=== PATIENT | female | born 1995 | race American Indian/Alaskan Native ===

== ENCOUNTER 2017-12-02 12:49 | Emergency (ER) | payer SELFPAY ==
[2017-12-02 13:07] VITALS: BP 122/64
[2017-12-02 13:50] LABS: Basophils % (Auto) 0.3 % (0.0-1.8); Eosinophils # (Auto) 0.1 K/mm3 (0.0-0.4); Hematocrit 40.2 % (30.3-42.9); Hemoglobin 13.6 gm/dl (10.1-14.3); Lymphocytes % (Auto) 24.7 % (13.4-35.0); Mean Corpuscular HGB Conc 34 % (30-34); Mean Corpuscular Hemoglobin 31 pg (28-32); Mean Corpuscular Volume 92 fl (79-97); Monocytes # (Auto) 0.6 K/mm3 (0.0-0.8); Monocytes % (Auto) 6.7 % (0.0-7.3); Platelet Count 227 K/mm3 (140-440); Red Blood Count 4.36 M/mm3 (3.65-5.03); Red Cell Distribution Width 12.4 % (13.2-15.2)
[2017-12-02 14:07] LABS: Alanine Aminotransferase 12 units/L (7-56); BUN/Creatinine Ratio 11; Blood Urea Nitrogen 8 mg/dL (7-17); Calcium 8.9 mg/dL (8.4-10.2); Hemolysis Index 14
[2017-12-02 18:09] LABS: Bacteria,Urine 1+ /HPF (Negative); Bilirubin,Urine NEG (Negative); Blood,Urine NEG (Negative); Color,Urine Yellow (Yellow); Mucus,Urine FEW /HPF; Nitrite,Urine NEG (Negative); Protein,Urine <15 mg/dL mg/dL (Negative); Urobilinogen,Urine < 2.0 mg/dL (<2.0)
== END 2017-12-02 21:25 | disposition left against medical advice (07) ==
LOC: ED 12:49
DX: R10.2 Pelvic and perineal pain (principal); Z53.21 Procedure and treatment not carried out due to patient leaving prior to being seen by health care provider
CPT/HCPCS: 36415; 80053; 81001; 85025

== ENCOUNTER 2018-05-03 19:16 | Emergency (ER) | payer SELFPAY ==
[2018-05-03] MEDS ORDERED: TYLENOL ONE (22:16)
[2018-05-04 01:54] LABS: Basophils % (Auto) 0.3 % (0.0-1.8); Eosinophils % (Auto) 0.3 % (0.0-4.3); Hematocrit 41.3 % (30.3-42.9); Lymphocytes % (Auto) 14.1 % (13.4-35.0); Mean Corpuscular HGB Conc 34 % (30-34); Mean Corpuscular Hemoglobin 31 pg (28-32); Mean Corpuscular Volume 91 fl (79-97); Monocytes # (Auto) 0.6 K/mm3 (0.0-0.8); Monocytes % (Auto) 4.1 % (0.0-7.3); Platelet Count 255 K/mm3 (140-440); Red Blood Count 4.55 M/mm3 (3.65-5.03); Red Cell Distribution Width 12.2 % (13.2-15.2)
[2018-05-04 03:30] LABS: Bilirubin,Urine NEG (Negative); Blood,Urine NEG (Negative); Color,Urine Yellow (Yellow); Mucus,Urine 1+ /HPF; Protein,Urine <15 mg/dL mg/dL (Negative)
[2018-05-04] MEDS ORDERED: TORADOL IV ONE (03:36)
[2018-05-04] MEDS ORDERED: SUBLIMAZE IV ONE (03:36)
[2018-05-04] MEDS ORDERED: NACL 0.9% 1000 ML 1,000 ML IV ONE (03:36)
--- NOTE | 2018-05-04 03:37 | Emergency Department Report ---
ED Abdominal Pain HPI - General Chief Complaint: Abdominal Pain Stated Complaint: ABD PAIN; VAG BLEEDING Time Seen by Provider: 05/04/18 03:30 Source: patient, RN notes reviewed, old records reviewed Mode of arrival: Ambulatory Limitations: No Limitations - History of Present Illness Initial Comments: This is a 23-year-old female, unknown to this provider previously, history of gonorrhea, patient has seen Pasquale Rosario of gynecology in the past. Presents to the ER with suprapubic and lower abdominal pain, bleeding and cramping. Positive discharge which is yellow, no urinary symptoms. Has one partner who she is sexually active with, reports condom use. MD Complaint: abdominal pain -: Gradual Location: LLQ, RLQ, suprapubic Severity: moderate Severity scale (0 -10): 0 Quality: cramping, aching Consistency: constant Improves With: medication, rest Worsens With: movement Associated Symptoms: denies: vomiting, diarrhea, fever, chills, constipation, dysuria, hematemesis, melena, hematuria, anorexia, syncope - Related Data Previous Rx's Medication Instructions Recorded Last Taken Type Doxycycline [Vibramycin CAP] 100 mg PO Q12HR #14 capsule 07/27/15 Unknown Rx Ibuprofen [Motrin] 600 mg PO Q8H PRN #30 tablet 07/27/15 Unknown Rx Methylergonovine [Methergine] 0.2 mg PO Q8HR #6 tablet 07/27/15 Unknown Rx Acetaminophen/Codeine [Tylenol #3] 1 tab PO Q6H PRN #15 tab 08/08/15 Unknown Rx Doxycycline [Vibramycin CAP] 100 mg PO Q12HR #28 capsule 08/08/15 Unknown Rx Acetaminophen [Tylenol Arthritis] 650 mg PO Q6HR PRN #30 tablet.er 05/04/18 Unknown Rx Doxycycline [Vibramycin] 100 mg PO Q12HR #28 capsule 05/04/18 Unknown Rx Ibuprofen [Motrin] 600 mg PO Q8H PRN #30 tablet 05/04/18 Unknown Rx Ondansetron [Zofran Odt] 4 mg PO Q8HR PRN #20 tab.rapdis 05/04/18 Unknown Rx Allergies Allergy/AdvReac Type Severity Reaction Status Date / Time No Known Allergies Allergy Verified 07/27/15 08:51 ED Review of Systems ROS: Stated complaint: ABD PAIN; VAG BLEEDING Other details as noted in HPI Comment: All other systems reviewed and negative ED Past Medical Hx - Past Medical History Previous Medical History?: Yes Hx Hypertension: No Hx Heart Attack/AMI: No Hx Congestive Heart Failure: No Hx Diabetes: No Hx Deep Vein Thrombosis: No Hx Renal Disease: No Hx Sickle Cell Disease: No Hx Seizures: No Hx Asthma: No Hx COPD: No Hx HIV: No Additional medical history: Miscarriage 07-27-2015 - Surgical History Past Surgical History?: Yes Additional Surgical History: D&C 07-27-2015 - Social History Smoking Status: Current Every Day Smoker Substance Use Type: None - Medications Home Medications: Home Medications Medication Instructions Recorded Confirmed Last Taken Type Doxycycline [Vibramycin CAP] 100 mg PO Q12HR #14 capsule 07/27/15 07/30/16 Unknown Rx Ibuprofen [Motrin] 600 mg PO Q8H PRN #30 tablet 07/27/15 07/30/16 Unknown Rx Methylergonovine [Methergine] 0.2 mg PO Q8HR #6 tablet 07/27/15 07/30/16 Unknown Rx Acetaminophen/Codeine [Tylenol #3] 1 tab PO Q6H PRN #15 tab 08/08/15 07/30/16 Unknown Rx Doxycycline [Vibramycin CAP] 100 mg PO Q12HR #28 capsule 08/08/15 07/30/16 Unknown Rx Acetaminophen [Tylenol Arthritis] 650 mg PO Q6HR PRN #30 tablet.er 05/04/18 Unknown Rx Doxycycline [Vibramycin] 100 mg PO Q12HR #28 capsule 05/04/18 Unknown Rx Ibuprofen [Motrin] 600 mg PO Q8H PRN #30 tablet 05/04/18 Unknown Rx Ondansetron [Zofran Odt] 4 mg PO Q8HR PRN #20 tab.rapdis 05/04/18 Unknown Rx ED Physical Exam - General Limitations: No Limitations General appearance: alert, in no apparent distress - Head Head exam: Present: atraumatic, normocephalic - Eye Eye exam: Present: normal appearance, EOMI. Absent: nystagmus - ENT ENT exam: Present: normal exam, normal orophraynx, mucous membranes moist, normal external ear exam - Neck Neck exam: Present: normal inspection, full ROM - Respiratory Respiratory exam: Present: normal lung sounds bilaterally. Absent: respiratory distress - Cardiovascular Cardiovascular Exam: Present: regular rate, normal rhythm, normal heart sounds. Absent: systolic murmur, diastolic murmur, rubs, gallop - GI/Abdominal GI/Abdominal exam: Present: soft, tenderness, normal bowel sounds, pulsatile mass. Absent: distended, guarding, rebound, rigid - External exam: Present: normal external exam Speculum exam: Present: cervical discharge, vaginal bleeding Bi-manual exam: Present: cervical motion tendernes, adnexal tenderness, uterine tenderness, other (escorted by nurse OCHOA HERNANDEZ). Absent: normal bi- manual exam - Extremities Exam Extremities exam: Present: normal inspection, full ROM, normal capillary refill. Absent: pedal edema, joint swelling, calf tenderness - Back Exam Back exam: Present: normal inspection, full ROM. Absent: tenderness, CVA tenderness (R), paraspinal tenderness, vertebral tenderness - Neurological Exam Neurological exam: Present: alert, oriented X3, CN II-XII intact, normal gait, other (Extraocular movements intact. Tongue midline. No facial droop. Facial sensation intact to light touch in the V1, V2, V3 distribution bilaterally. 5 and 5 strength in 4 extremities.. Sensation is intact to light touch in 4 extremities.). Absent: motor sensory deficit - Psychiatric Psychiatric exam: Present: normal affect, normal mood - Skin Skin exam: Present: warm, dry, intact, normal color. Absent: rash ED Course Vital Signs 05/03/18 05/04/18 22:12 05:33 Temperature 97.8 F Pulse Rate 73 64 Respiratory 20 16 Rate Blood Pressure 130/73 106/66 O2 Sat by Pulse 100 100 Oximetry - Reevaluation(s) Reevaluation #1: 05/04/18 05:51 CT scan of the abdomen and pelvis is negative. The patient feels improved. She is tolerating liquid feeds. She'll be treated empirically for pelvic inflammatory disease. She is medically suitable for discharge at this time. STD instructions and precautions were reviewed with the patient. ED Medical Decision Making - Lab Data Result diagrams: 05/04/18 01:36 05/04/18 Unknown Vital Signs 05/03/18 22:12 Temperature 97.8 F Pulse Rate 73 Respiratory 20 Rate Blood Pressure 130/73 O2 Sat by Pulse 100 Oximetry Lab Results 05/03/18 05/04/18 05/04/18 Range/Units 01:31 00:01 01:36 WBC 14.4 H (4.5-11.0) K/mm3 RBC 4.55 (3.65-5.03) M/mm3 Hgb 14.0 (10.1-14.3) gm/dl Hct 41.3 (30.3-42.9) % MCV 91 (79-97) fl MCH 31 (28-32) pg MCHC 34 (30-34) % RDW 12.2 L (13.2-15.2) % Plt Count 255 (140-440) K/mm3 Lymph % (Auto) 14.1 (13.4-35.0) % Sampson % (Auto) 4.1 (0.0-7.3) % Eos % (Auto) 0.3 (0.0-4.3) % Baso % (Auto) 0.3 (0.0-1.8) % Lymph # 2.0 (1.2-5.4) K/mm3 Sampson # 0.6 (0.0-0.8) K/mm3 Eos # 0.0 (0.0-0.4) K/mm3 Baso # 0.0 (0.0-0.1) K/mm3 Seg Neutrophils % 81.2 H (40.0-70.0) % Seg Neutrophils # 11.7 H (1.8-7.7) K/mm3 Sodium (137-145) mmol/L Potassium (3.6-5.0) mmol/L Chloride (98-107) mmol/L Carbon Dioxide (22-30) mmol/L Anion Gap mmol/L BUN (7-17) mg/dL Creatinine (0.7-1.2) mg/dL Estimated GFR ml/min BUN/Creatinine Ratio % Glucose (65-100) mg/dL Calcium (8.4-10.2) mg/dL HCG, Qual (Negative) Urine Color Yellow (Yellow) Urine Turbidity Clear (Clear) Urine pH 6.0 (5.0-7.0) Ur Specific [place] 1.023 (1.003-1.030) Urine Protein <15 mg/dl (Negative) mg/dL Urine Glucose (UA) Neg (Negative) mg/dL Urine Ketones Neg (Negative) mg/dL Urine Blood Neg (Negative) Urine Nitrite Neg (Negative) Urine Bilirubin Neg (Negative) Urine Urobilinogen 2.0 (<2.0) mg/dL Ur Leukocyte Esterase Neg (Negative) Urine WBC (Auto) 5.0 (0.0-6.0) /HPF Urine RBC (Auto) 2.0 (0.0-6.0) /HPF U Epithel Cells (Auto) 2.0 (0-13.0) /HPF Urine Mucus 1+ /HPF Blood Type B POSITIVE Antibody Screen Negative 05/04/18 05/04/18 Range/Units 01:36 Unknown WBC (4.5-11.0) K/mm3 RBC (3.65-5.03) M/mm3 Hgb (10.1-14.3) gm/dl Hct (30.3-42.9) % MCV (79-97) fl MCH (28-32) pg MCHC (30-34) % RDW (13.2-15.2) % Plt Count (140-440) K/mm3 Lymph % (Auto) (13.4-35.0) % Sampson % (Auto) (0.0-7.3) % Eos % (Auto) (0.0-4.3) % Baso % (Auto) (0.0-1.8) % Lymph # (1.2-5.4) K/mm3 Sampson # (0.0-0.8) K/mm3 Eos # (0.0-0.4) K/mm3 Baso # (0.0-0.1) K/mm3 Seg Neutrophils % (40.0-70.0) % Seg Neutrophils # (1.8-7.7) K/mm3 Sodium 142 (137-145) mmol/L Potassium 3.9 (3.6-5.0) mmol/L Chloride 101.0 (98-107) mmol/L Carbon Dioxide 28 (22-30) mmol/L Anion Gap 17 mmol/L BUN 9 (7-17) mg/dL Creatinine 0.6 L (0.7-1.2) mg/dL Estimated GFR > 60 ml/min BUN/Creatinine Ratio 15 % Glucose 103 H (65-100) mg/dL Calcium 9.5 (8.4-10.2) mg/dL HCG, Qual Negative (Negative) Urine Color (Yellow) Urine Turbidity (Clear) Urine pH (5.0-7.0) Ur Specific [place] (1.003-1.030) Urine Protein (Negative) mg/dL Urine Glucose (UA) (Negative) mg/dL Urine Ketones (Negative) mg/dL Urine Blood (Negative) Urine Nitrite (Negative) Urine Bilirubin (Negative) Urine Urobilinogen (<2.0) mg/dL Ur Leukocyte Esterase (Negative) Urine WBC (Auto) (0.0-6.0) /HPF Urine RBC (Auto) (0.0-6.0) /HPF U Epithel Cells (Auto) (0-13.0) /HPF Urine Mucus /HPF Blood Type Antibody Screen - Radiology Data Radiology results: report reviewed, image reviewed Transvaginal ultrasound demonstrates no evidence of torsion. There is an indeterminate myometrial lesions in the lower uterine segment. It may represent an atypical fibroid. - Medical Decision Making Differential diagnosis, including but not limited to: Pelvic inflammatory disease, urinary tract infection, dysfunctional uterine bleeding, appendicitis, obstruction Assessment and plan: 23-year-old female with cervical motion tenderness, bilateral adnexal tenderness, history of gonorrhea, lower abdominal tenderness, yellowish cervical discharge, most likely has pelvic inflammatory disease. She will be treated empirically. A pelvic ultrasound did not demonstrate any immediate surgical disease or evidence of torsion. A CT scan of the abdomen and pelvis is pending. Patient has already had gonorrhea in the past. She is to follow up with outpatient [facility] for incidental ultrasound findings. Critical care attestation.: If time is entered above; I have spent that time in minutes in the direct care of this critically ill patient, excluding procedure time. ED Disposition Clinical Impression: Lower abdominal pain Disposition: DC-01 TO HOME OR SELFCARE Is pt being admited?: No Does the pt Need Aspirin: No Condition: Good Instructions: Pelvic Inflammatory Disease (ED) Additional Instructions: As we discussed, your laboratory studies appeared to be within normal limits. You are not Pelvic ultrasound demonstrated nonspecific uterine abnormality, most likely a fibroid. Follow up with a [facility] for this within the next 4-6 weeks. Not following up as recommended may result in an undiagnosed tumor, cancer, malignancy. Given all this, you'll be treated empirically for disease called pelvic inflammatory disease. We typically treat young females with unexplained lower abdominal pain to protect your ability to have children safely in the future. Cultures were sent today, and results will be available next 3-5 days. Please have your primary care doctor call the medical records department to obtain your culture results. Take the antibiotic therapy as directed. Take the nausea medication and pain medication as directed. I recommend outpatient testing for sexually transmitted diseases, including hepatitis, syphilis and HIV. I also recommend that you abstain from sexual activity until you have completed her antibiotic therapy, a physician states that it is safe for you to resume sexual activity, and any partners that you have been sexually active with have been tested/treated/evaluated for sexual transmitted diseases. Please follow-up with physician within 3-5 days. I recommend that you return to the ER right away with worsening pain, migration of pain, intractable nausea/vomiting, inability tolerate liquid feeds. Prescriptions: Acetaminophen [Tylenol Arthritis] 650 mg PO Q6HR PRN #30 tablet.er PRN Reason: Pain Doxycycline [Vibramycin] 100 mg PO Q12HR #28 capsule Ibuprofen [Motrin] 600 mg PO Q8H PRN #30 tablet PRN Reason: Pain Ondansetron [Zofran Odt] 4 mg PO Q8HR PRN #20 tab.rapdis PRN Reason: Nausea Referrals: PRIMARY CARE, [Primary Care Provider] - 3-5 Days [facility] [Provider Group] - 3-5 Days [facility] [Provider Group] - 3-5 Days [facility] [Provider Group] - 3-5 Days Forms: Work/School Release Form(ED)
[2018-05-04] MEDS ORDERED: FLAGYL PO ONE (03:45)
[2018-05-04] MEDS ORDERED: VIBRAMYCIN PO ONE (03:45)
[2018-05-04] MEDS ORDERED: cefTRIAXone 0.25 GM in NACL 0.9% 20 ML IV ONE (03:45)
[2018-05-04 04:10] LABS: BUN/Creatinine Ratio 15; Blood Urea Nitrogen 9 mg/dL (7-17); Calcium 9.5 mg/dL (8.4-10.2); Hemolysis Index 13
--- NOTE | 2018-05-04 05:06 | Ultrasound Report ---
FINAL REPORT EXAM: US TRANSVAGINAL HISTORY: PELVIC ABD PAIN TECHNIQUE: Transvaginal imaging was obtained the pelvis including Doppler interrogation of the adnexa. FINDINGS: The uterus is anteverted measuring 7.9 cm x 3.7 cm x 4.4 cm. The endometrial thickness is 1.4 mm. There is a heterogeneous myometrial lesion in the lower uterine segment measuring 2.3 cm x 1.9 cm x 2.1 cm. Free fluid is not seen. Both ovaries are normal size contour blood flow and echotexture revealing benign-appearing follicles. The right ovary measures 3.1 cm x 2.5 cm x 2.4 cm. The left ovary measures 3 cm x 2.6 cm x 2.3 cm. IMPRESSION: Indeterminate heterogeneous myometrial lesion in the lower uterine segment measuring 2.3 cm x 1.9 cm x 2.1 cm. This may represent an atypical fibroid. MRI of the pelvis is recommended for better overall valuation. Benign-appearing follicles in both ovaries. No evidence of ovarian torsion.
--- NOTE | 2018-05-04 05:10 | Ultrasound Report ---
FINAL REPORT EXAM: US PELVIS DUPLEX DOPPLER COMP HISTORY: PELVIC ABD PAIN TECHNIQUE: Routine transabdominal imaging was obtained of the pelvis including Doppler interrogation of the adnexa. FINDINGS: The uterus is anteverted measuring 7.9 cm x 3.7 cm x 4.4 cm. The endometrial thickness is 1.4 mm. In the lower uterine segment is a heterogeneous myometrial lesion measuring 2.3 cm x 1.9 cm x 2.1 cm. Free fluid is not seen. Both ovaries are normal size, contour, blood flow, and echotexture revealing benign-appearing follicles bilaterally. The right ovary measures 3.1 cm x 2.5 cm x 2.4 cm. The left ovary measures 3 cm x 2.6 cm x 2.3 cm. IMPRESSION: Indeterminate myometrial lesion in the lower uterine segment measuring 2.3 cm x 1.9 cm x 2.1 cm. This may represent an atypical fibroid. MRI of the pelvis is recommended for better evaluation. Benign-appearing follicles both ovaries. No evidence of ovarian torsion
[2018-05-04 05:40] VITALS: BP 106/66
--- NOTE | 2018-05-04 05:45 | Cat Scan Report ---
FINAL REPORT EXAM: CT ABDOMEN PELVIS W CON HISTORY: lower abd pain TECHNIQUE: Routine axial imaging was obtained of the abdomen and pelvis following the intravenous injection of 100 cc of Omnipaque 300. Delayed imaging was obtained through the kidneys ureters and bladder. Sagittal and coronal reconstructions were reviewed. FINDINGS: The lung bases are clear. Pleural fluid is not seen. The liver, gallbladder, biliary tree, pancreas, spleen, and adrenal glands appear normal. The kidneys enhance normally. There is no evidence of hydronephrosis. The vascular structures enhance normally. The bowel loops are normal in caliber and course. The appendix is not enlarged. There is no evidence of free fluid or adenopathy. In the pelvis the uterus and bladder appear normal. The skeletal structures are well-maintained. IMPRESSION: No acute process in the abdomen and pelvis.
== END 2018-05-04 06:05 | disposition home or self-care (01) ==
LOC: ED 19:16
DX: N39.0 Urinary tract infection, site not specified (principal); F17.200 Nicotine dependence, unspecified, uncomplicated
CPT/HCPCS: 36415; 74177; 76830; 80048; 81001; 84703; 85025; 86850; 86900; 86901; 87086; 87210; 87591; 93975; 96365; 96375; 99284; J0696; J1885; J3010; J7030; Q9967